=== PATIENT | female | born 1950 | race Caucasian/White ===

== ENCOUNTER → 2017-05-18 | Outpatient (CLI) | payer BC, MEDICARE ==
[~2017-05-18] MED LIST: ASPI-496 PO; FISH400C3 PO; GLIM4TAB2 PO; LEVO125T PO; LISI-467 PO; SIMV20TA PO
== END | disposition home or self-care (01) ==
LOC: CFH 12:02
PROVIDERS: ATTEND Internal Medicine Cardiovascular Disease
DX: R07.89 Other chest pain (principal)
CPT/HCPCS: 78452; 93017; A9502

== ENCOUNTER 2018-01-07 16:41 | Inpatient (IN) | payer OTHER, MEDICARE ==
[~2018-01-07] VITALS: Ht 154.9 cm; Wt 105.4 kg
[~2018-01-07 16:41] MED LIST changes: -ATOR40TA78 PO; -LEVO112T2 PO
[2018-01-07] MEDS ORDERED: ATOR40TA78 PO (17:28)
[2018-01-07] MEDS ORDERED: LEVO112T2 PO (17:28)
[2018-01-07] MEDS ORDERED: PLEASE ENTER HEIGHT AND WEIGHT MC SCH (17:30)
[2018-01-07 17:35] VITALS: BP 125/81
[2018-01-07 17:51] LABS: BASOPHILS # (AUTO) 0.06 x10^3/uL (0-0.1); BASOPHILS % (AUTO) 1 % (0-1); EOSINOPHILS # (AUTO) 0.15 x10^3/uL (0-0.4); EOSINOPHILS % (AUTO) 1 % (1-7); LYMPHOCYTES # (AUTO) 3.24 x10^3/uL (1-3.4); LYMPHOCYTES % (AUTO) 28 % (22-44); MD NO; MEAN CORPUSCULAR HEMOGLOBIN 29.1 pg (27.0-34.8); MEAN CORPUSCULAR HGB CONC 33.7 g/dL (32.4-35.8); MEAN CORPUSCULAR VOLUME 86.2 fL (80-100); MEAN PLATELET VOLUME 8.9 fL (7.4-10.4); MONOCYTES # (AUTO) 0.63 x10^3/uL (0.2-0.8); MONOCYTES % (AUTO) 5 % (2-9); NEUTROPHILS # (AUTO) 7.64 x10^3/uL (1.8-6.8); NEUTROPHILS % (AUTO) 65 % (42-75); PLATELET COUNT 201 x10^3/uL (130-400); RED BLOOD COUNT 4.84 x10^6/uL (3.82-5.3); RED CELL DISTRIBUTION WIDTH 14.3 % (9.6-15.2)
[2018-01-07 17:59] LABS: ALBUMIN 4.1 g/dL (3.4-5.0); ANION GAP 5 mmol/L (5-15); CALCIUM 9.5 mg/dL (8.5-10.1); CHLORIDE 107 mmol/L (98-107); CREATININE 1.71 mg/dL (0.55-1.02)
[2018-01-07] MEDS ORDERED: SODIUM CHLORIDE 0.9% 1,000ML IVBOLUS ONE (18:00)
[2018-01-07 18:06] LABS: INTERNATIONAL NORMALIZED RATIO 0.96 (0.93-1.1); PROTHROMBIN TIME 9.9 Seconds (9.6-11.5)
[2018-01-07 18:09] LABS: FREE T4 (FREE THYROXINE) 1.56 ng/dL (0.76-1.46)
[2018-01-07] MEDS: SODIUM CHLORIDE 0.9% 1,000 ML IV SCH (18:09)
[2018-01-07 18:26] LABS: HEMOGLOBIN A1C 7.7 % (4.2-6.3)
[2018-01-07] MEDS ORDERED: HEPARIN 5,000 UNITS/ML, 1ML IV PRN (18:30)
[2018-01-07] MEDS ORDERED: HEPARIN 25,000 UNITS/500ML PMX 500 ML IV PRN (18:30)
[2018-01-07] MEDS ORDERED: HEPARIN 5,000 UNITS/ML, 1ML IV ONE (18:30)
[2018-01-07] MEDS ORDERED: DEXTROSE 50%, 50ML SYRINGE IVPush PRN (19:00)
[2018-01-07] MEDS ORDERED: DEXTROSE 4 GM TAB.CHEW PO PRN (19:00)
[2018-01-07] MEDS ORDERED: GLUCAGON 1 MG IM PRN (19:00)
[2018-01-07] MEDS ORDERED: MAGNESIUM SULFATE PMX 2GM/50ML 50 ML IV ONE (19:00)
[2018-01-07] MEDS ORDERED: OMNIPAQUE 350 MG/ML, 100ML BOTTLE ONE (19:16)
[2018-01-07 19:42] VITALS: BP 139/78
[2018-01-07] MEDS: SODIUM CHLORIDE FLUSH 10ML SYR IVF SCH (21:02)
[2018-01-07] MEDS: ATORVASTATIN 40 MG TABLET PO SCH (21:02)
[2018-01-08] MEDS: SODIUM CHLORIDE 0.9% 1,000 ML IV SCH ×3 (01:51→18:27)
[2018-01-08 02:00] VITALS: BP 122/74
[2018-01-08 05:26] LABS: CHOL/HDL RATIO 3.9; LDL/HDL RATIO 1.6 (0.5-3.0)
[2018-01-08] MEDS: LEVOTHYROXINE 112 MCG TABLET PO SCH (05:58)
[2018-01-08] MEDS: HEPARIN 5,000 UNITS/ML, 1ML SQ SCH ×2 (06:00→17:14)
[2018-01-08 07:10] VITALS: BP 80/74
[2018-01-08 07:27] LABS: ANION GAP 8 mmol/L (5-15); CALCIUM 8.7 mg/dL (8.5-10.1); CHLORIDE 110 mmol/L (98-107); CREATININE 1.56 mg/dL (0.55-1.02)
[2018-01-08] MEDS: INSULIN LISPRO 100 UNITS/ML, PEN SQ-INSULIN SCH ×4 (07:30→19:58)
[2018-01-08 07:50] VITALS: BP 135/76
[2018-01-08] MEDS ORDERED: GLIMEPIRIDE 4 MG TABLET PO SCH (09:00)
[2018-01-08 09:50] VITALS: BP 140/76
[2018-01-08] MEDS: CLOPIDOGREL 75 MG TABLET PO SCH (09:54)
[2018-01-08] MEDS: GLIMEPIRIDE 4 MG TABLET PO SCH (09:54)
[2018-01-08] MEDS: LISINOPRIL 20 MG TABLET PO SCH (09:54)
[2018-01-08] MEDS: ASPIRIN 81 MG TABLET EC PO SCH (09:54)
[2018-01-08] MEDS: SODIUM CHLORIDE FLUSH 10ML SYR IVF SCH ×2 (10:06→19:52)
[2018-01-08 13:18] VITALS: BP 132/72
[2018-01-08 18:41] VITALS: BP 144/80
[2018-01-08] MEDS: ATORVASTATIN 40 MG TABLET PO SCH (19:52)
[2018-01-09] MEDS: HEPARIN 5,000 UNITS/ML, 1ML SQ SCH ×3 (01:00→14:00)
[2018-01-09 01:40] VITALS: BP 119/73
[2018-01-09] MEDS: SODIUM CHLORIDE 0.9% 1,000 ML IV SCH ×2 (02:03→10:56)
[2018-01-09 04:52] LABS: ANION GAP 7 mmol/L (5-15); CALCIUM 8.2 mg/dL (8.5-10.1); CHLORIDE 113 mmol/L (98-107); CREATININE 1.41 mg/dL (0.55-1.02)
[2018-01-09] MEDS: LEVOTHYROXINE 112 MCG TABLET PO SCH (05:40)
[2018-01-09] MEDS: INSULIN LISPRO 100 UNITS/ML, PEN SQ-INSULIN SCH ×2 (07:00→12:23)
[2018-01-09 07:39] VITALS: BP 140/81
[2018-01-09] MEDS: LISINOPRIL 20 MG TABLET PO SCH (08:09)
[2018-01-09] MEDS: CLOPIDOGREL 75 MG TABLET PO SCH (08:09)
[2018-01-09] MEDS: GLIMEPIRIDE 4 MG TABLET PO SCH (08:09)
[2018-01-09] MEDS: ASPIRIN 81 MG TABLET EC PO SCH (08:09)
[2018-01-09] MEDS: SODIUM CHLORIDE FLUSH 10ML SYR IVF SCH (08:10)
[2018-01-09 13:47] VITALS: BP 147/75
[2018-01-09] MEDS ORDERED: CLOP75TA PO (13:53)
[2018-01-09 14:30] VITALS: BP 164/85
== END 2018-01-09 16:42 | disposition home or self-care (01) | DRG 67 ==
LOC: 5SO 16:41
PROVIDERS: ADMIT Internal Medicine Cardiovascular Disease; ATTEND Internal Medicine
DX: I65.22 Occlusion and stenosis of left carotid artery (principal); N17.0 Acute kidney failure with tubular necrosis; C85.90 Non-Hodgkin lymphoma, unspecified, unspecified site; Z68.41 Body mass index [BMI] 40.0-44.9, adult; C73 Malignant neoplasm of thyroid gland; E11.22 Type 2 diabetes mellitus with diabetic chronic kidney disease; E11.65 Type 2 diabetes mellitus with hyperglycemia; E66.9 Obesity, unspecified; E78.5 Hyperlipidemia, unspecified; E83.42 Hypomagnesemia; E89.0 Postprocedural hypothyroidism; I12.9 Hypertensive chronic kidney disease with stage 1 through stage 4 chronic kidney disease, or unspecified chronic kidney disease; I25.10 Atherosclerotic heart disease of native coronary artery without angina pectoris; N18.9 Chronic kidney disease, unspecified; Z79.4 Long term (current) use of insulin; Z82.3 Family history of stroke; Z82.49 Family history of ischemic heart disease and other diseases of the circulatory system; Z83.3 Family history of diabetes mellitus; Z85.528 Personal history of other malignant neoplasm of kidney; Z85.850 Personal history of malignant neoplasm of thyroid; Z90.5 Acquired absence of kidney
CPT/HCPCS: 36415; 70496; 70498; 71045; 80048; 80061; 82040; 82962; 83036; 83735; 84100; 84439; 84443; 85025; 85520; 85610; 93005; J1644; Q9967; J1815; J3475; J7030

== ENCOUNTER → 2018-01-07 | Outpatient (CLI) | payer OTHER, MEDICARE ==
[~2018-01-07] MED LIST changes: +ATOR40TA78 PO; +LEVO112T2 PO
== END | disposition home or self-care (01) ==
LOC: CVU 06:56
PROVIDERS: ATTEND Internal Medicine Cardiovascular Disease
DX: I08.2 Rheumatic disorders of both aortic and tricuspid valves (principal); I10 Essential (primary) hypertension; E78.5 Hyperlipidemia, unspecified; E11.9 Type 2 diabetes mellitus without complications; I25.10 Atherosclerotic heart disease of native coronary artery without angina pectoris; Z85.528 Personal history of other malignant neoplasm of kidney
CPT/HCPCS: 82962; 93306; 93880

== ENCOUNTER 2019-02-03 13:36 | Outpatient (CLI) | payer BC, MEDICARE ==
[~2019-02-03 13:36] MED LIST changes: +ATOR40TA78 PO; +CLOP75TA PO; +LEVO112T2 PO
== END 2019-02-03 23:59 | disposition home or self-care (01) ==
LOC: CVU 13:36
PROVIDERS: ATTEND Surgery
DX: I65.23 Occlusion and stenosis of bilateral carotid arteries (principal); I10 Essential (primary) hypertension; E78.5 Hyperlipidemia, unspecified; E11.9 Type 2 diabetes mellitus without complications
CPT/HCPCS: 93880

== ENCOUNTER → 2019-09-12 | Outpatient (CLI) | payer BC, MEDICARE ==
[~2019-09-12] MED LIST changes: -GLIM4TAB2 PO; +GLIM4TAB8 PO
== END | disposition home or self-care (01) ==
LOC: CVU 13:17
PROVIDERS: ATTEND Surgery
DX: I65.23 Occlusion and stenosis of bilateral carotid arteries (principal); I10 Essential (primary) hypertension; E11.9 Type 2 diabetes mellitus without complications; I25.10 Atherosclerotic heart disease of native coronary artery without angina pectoris
CPT/HCPCS: 93880

== ENCOUNTER → 2019-09-15 | Outpatient (CLI) | payer MEDICARE, BC | END | disposition home or self-care (01) | LOC: RAD 09:34 | PROVIDERS: ATTEND Nurse Practitioner Family | DX: R06.02 Shortness of breath (principal); I26.99 Other pulmonary embolism without acute cor pulmonale | CPT/HCPCS: 78598; A9540; A9558 ==

== ENCOUNTER → 2019-09-21 | Outpatient (CLI) | payer BC, MEDICARE ==
[~2019-09-21] MED LIST changes: +REGADENOSON 0.4 MG/5 ML SYRINGE ONE
== END | disposition home or self-care (01) ==
LOC: CFH 12:33
PROVIDERS: ATTEND Nurse Practitioner Family
DX: I25.10 Atherosclerotic heart disease of native coronary artery without angina pectoris (principal); I10 Essential (primary) hypertension
CPT/HCPCS: 78452; 93017; A9502; J2785

== ENCOUNTER → 2019-09-29 | Outpatient (CLI) | payer MEDICARE, BC ==
[~2019-09-29] MED LIST changes: -REGADENOSON 0.4 MG/5 ML SYRINGE ONE
== END | disposition home or self-care (01) ==
LOC: CFH 08:47
PROVIDERS: ATTEND Nurse Practitioner Family
DX: I08.2 Rheumatic disorders of both aortic and tricuspid valves (principal); E11.9 Type 2 diabetes mellitus without complications; I11.9 Hypertensive heart disease without heart failure
CPT/HCPCS: 93306

== ENCOUNTER → 2020-04-05 | Outpatient (CLI) | payer MEDICARE, OTHER | END | disposition home or self-care (01) | LOC: CVU 12:37 | PROVIDERS: ATTEND Surgery | DX: I65.23 Occlusion and stenosis of bilateral carotid arteries (principal) | CPT/HCPCS: 93880 ==

== ENCOUNTER → 2020-08-27 | Outpatient (CLI) | payer MEDICARE, OTHER ==
[~2020-08-27] MED LIST changes: +OMNIPAQUE 350 MG/ML, 100ML BOTTLE ONE
== END | disposition home or self-care (01) ==
LOC: CFH 09:51
PROVIDERS: ATTEND Internal Medicine Cardiovascular Disease
DX: I65.23 Occlusion and stenosis of bilateral carotid arteries (principal)
CPT/HCPCS: 70498; 82565; Q9967